=== PATIENT | male | born 1960 | race Two or more races ===

== ENCOUNTER 2017-03-06 13:04 | Emergency (ER) | payer SELFPAY ==
[2017-03-06 13:10] VITALS: BP 133/92; PULSE 76; RESP 16; TEMP 97.5; O2SAT 98
--- NOTE | 2017-03-06 15:01 | EDPHY ---
H & P Stated Complaint: left sided facial drooping and ear pain for 2 weeks. Time Seen by Provider: 03/06/17 14:47 HPI/ROS: CHIEF COMPLAINT: Facial droop HISTORY OF PRESENT ILLNESS: This patient is a 56 year old male complaining of left-sided facial droop onset two weeks ago. He took a shower in [place], and travelled to [place], eleven hour trip. He felt his eye was drooping, and then noted it was his whole face. He was unable to drink water normally due to his mouth drooping as well. There is no pain associated with this. If he sleeps on his left side, he feels some pressure or sensitivity in his left ear. He called his primary care office at [facility] on [facility], but they recommended he present to the Emergency Department for evaluation. He has not sought other care prior to today or tried any home remedies. He denies any recent illness, fever, hearing loss, tinnitus, headache, confusion, other weakness, or numbness. No skin rash. REVIEW OF SYSTEMS: A 10 point review of systems was performed and is negative with the exception of the elements mentioned in the history of present illness. Past medical history: Denies Past surgical history: Denies Family history: Noncontributory Social history: Nonsmoker Adult Physical: General Appearance: Alert, no acute distress. BP 133/92. Eyes: Pupils equal and round, no conjunctival injection, no discharge. ENT, Mouth: Mucous membranes are moist, no oropharyngeal erythema or edema. Neck: No lymphadenopathy, supple. Respiratory: Lungs are clear to auscultation; no wheezes, rales, or rhonchi. Cardiovascular: Regular rate and rhythm; no murmur, rub, or gallop. Gastrointestinal: Abdomen is soft and non tender, no masses or organomegaly, bowel sounds normal. Skin: Warm and dry, no rashes, normal color. Back: Nontender to palpation over the thoracolumbar spine. Extremities: No lower extremity edema, no calf tenderness or swelling. Neurological: Alert and oriented.CN 2-12 examined. Left facial nerve weakness involving all three distributions. Normal facial sensation bilaterally. Moving all four extremities easily and equally. Strength is 5 over 5 bilaterally with testing of all major motor groups. Sensation is intact to light touch over all 4 extremities. Deep tendon reflexes are 2+ in the biceps and knees bilaterally. Gait is normal. [id number] is performed accurately. Psychiatric: Normal affect. - Personal History Current Tetanus Diphtheria and Acellular Pertussis (TDAP): Yes Tetanus Vaccine Date: 2009 - Medical/Surgical History Hx Asthma: No Hx Chronic Respiratory Disease: No Hx Diabetes: No Hx Cardiac Disease: No Hx Renal Disease: No Hx Cirrhosis: No Hx Alcoholism: No Hx HIV/AIDS: No Hx Splenectomy or Spleen Trauma: No Other PMH: Denies - Social History Smoking Status: Never smoked Constitutional: Initial Vital Signs Temperature (C) 36.4 C 03/06/17 13:06 Heart Rate 76 03/06/17 13:06 Respiratory Rate 16 03/06/17 13:06 Blood Pressure 133/92 H 03/06/17 13:06 O2 Sat (%) 98 03/06/17 13:06 O2 Delivery Mode Room Air Allergies/Adverse Reactions: No Known Allergies Allergy (Unverified 03/06/17 13:10) Home Medications: Medication Instructions Recorded Valacyclovir HCl [Valtrex] 1,000 mg PO TID #21 tab 03/06/17 predniSONE 30 mg PO BID #14 tablet 03/06/17 Medical Decision Making ED Course/Re-evaluation: 56 year old male presents with two week history of left-sided facial droop. Exam reveals left facial weakness involving all three distributions. 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 Plan to discharge home in good condition with prescriptions for Prednisone and Valacyclovir. He understands that these medications might not help, as he is two weeks into this. Eye protection discussed. He will follow up with his primary care provider for further management. Return precautions discussed. He is comfortable with this plan. Differential Diagnosis: DDX includes but is not limited to Solano's Palsy,, stroke, Lyme disease, tumor, trauma, middle ear infection, aneurysm, MS. Departure - Departure Disposition: Home, Routine, Self-Care Clinical Impression: Solano's palsy Condition: Good Instructions: Solano Palsy (ED) Additional Instructions: 1. Take your steroid medication and antiviral medication as prescribed. 2. Follow up with your primary care provider next week for continued evaluation. 3. Return to the emergency department if you develop fever, increased weakness or numbness, difficulty speaking, confusion, headache, ear pain, hearing loss, severe dizziness, or other associated symptoms. 4. The attached instructions include information on protecting your eye. Referrals: [facility] [Other] - As per Instructions [facility] [Clinic] - As per Instructions Prescriptions: predniSONE 30 mg PO BID #14 tablet Valacyclovir HCl [Valtrex] 1,000 mg PO TID #21 tab Report Scribed for: Krystle Murillo Report Scribed by: Charla Jordan Date of Report: 03/06/17 Time of Report: 15:01 Physician Review and Approval Statement: 03/09/17 10:32 Portions of this chart were entered by a director of graduate medical education. I personally performed the HPI, PE, MDM. I have reviewed the documentation and agree with the chart as written.
== END 2017-03-06 15:33 | disposition home or self-care (01) ==
DX: G51.0 Bell's palsy (principal)